=== PATIENT | female | born 1960 | race Caucasian/White ===

== ENCOUNTER → 2016-06-08 | Outpatient (CLI) | payer OTHER | LOC: RAD 14:11 | PROVIDERS: ATTEND Family Medicine | DX: Z12.31 Encounter for screening mammogram for malignant neoplasm of breast (principal) ==

== ENCOUNTER 2016-06-28 07:55 | Day surgery (SDC) | payer OTHER ==
[~2016-06-28] VITALS: Ht 166.4 cm; Wt 68.6 kg
[~2016-06-28 07:55] MED LIST: SODIUM CHLORIDE FLUSH 3 ML SYR IV PRN
[2016-06-28 08:00] VITALS: BP 107/73
[2016-06-28] MEDS: LACTATED RINGERS 1,000 ML IV SCH (08:06)
[2016-06-28] MEDS ORDERED: ALFENTANIL 500 MCG/ML (ALFENTA) 5 ML AMP IV ONE (08:58)
[2016-06-28] MEDS ORDERED: PROPOFOL 20 ML IV ONE (08:58)
[2016-06-28] MEDS ORDERED: MIDAZOLAM 2 MG/2 ML (VERSED) VIAL ONE (08:58)
[2016-06-28 09:59] VITALS: BP 109/58
[2016-06-28 10:27] VITALS: BP 128/66
== END 2016-06-28 10:31 | disposition home or self-care (01) ==
LOC: ASC 07:55
PROVIDERS: ATTEND Surgery
DX: Z12.11 Encounter for screening for malignant neoplasm of colon (principal); D12.2 Benign neoplasm of ascending colon; D12.5 Benign neoplasm of sigmoid colon; E78.5 Hyperlipidemia, unspecified; Z79.82 Long term (current) use of aspirin; E88.81 Metabolic syndrome and other insulin resistance
CPT/HCPCS: 45380; J2250; J7120